=== PATIENT | female | born 1995 | race Two or more races ===

== ENCOUNTER 2025-01-06 12:00 | Emergency (ER) | payer OTHER ==
[~2025-01-06] VITALS: Ht 160 cm; Wt 56.2 kg
[2025-01-06 12:51] LABS: CALCIUM, SERUM 8.7 mg/dL (8.5-10.1); CREATININE 0.6 mg/dL (0.6-1.3); SODIUM SERUM 136 mmol/L (136-145); UREA NITROGEN, BLOOD 11 mg/dL (7-18)
[2025-01-06 13:04] LABS: ASPARTATE AMINOTRANSFERASE 12 U/L (15-37); NT-PRO BNP 57 pg/mL (0-125); TOTAL PROTEIN, SERUM 7.8 g/dL (6.4-8.2)
[2025-01-06 13:15] LABS: PLATELET COUNT (AUTO) 322 K/uL (150-450); RED BLOOD CELL COUNT(AUTO) 3.93 MIL/uL (4.0-5.2); RED CELL DISTRIBUTION WIDTH 12.2 % (11.5-15.0); WHITE BLOOD COUNT (AUTO) 14.5 K/uL (4.3-11.0)
[2025-01-06 13:56] VITALS: BP 110/70; TEMP 98.7; O2SAT 100
== END 2025-01-06 14:00 | disposition home or self-care (01) ==
LOC: ER 12:04
DX: R55 Syncope and collapse (principal); R53.1 Weakness; R06.02 Shortness of breath; R10.20 Pelvic and perineal pain unspecified side
CPT/HCPCS: 36415; 71045-TC; 80048-TC; 80076-TC; 82962-TC; 83880; 84484-TC; 84702-TC; 85025-TC